=== PATIENT | female | born 1980 | race Two or more races ===

== ENCOUNTER 2019-09-14 12:00 | Inpatient (IN) | payer OTHER ==
[~2019-09-14] VITALS: Ht 165.1 cm; Wt 96.6 kg
[2019-10-04] MEDS ORDERED: PRENATAL TABLE1 EACH PO (01:26)
== END 2019-10-06 14:20 | disposition home or self-care (01) | DRG 807 ==
LOC: OB/GYN 10-03 12:00 → LDR 10-04 01:15 → SURG-SUITE 10-04 01:15
PROVIDERS: ADMIT Obstetrics & Gynecology; ATTEND Obstetrics & Gynecology
PROC: 10E0XZZ Delivery of Products of Conception, External Approach (ICD-10-PCS; principal; 2019-10-04)
PROC: 0KQM0ZZ Repair Perineum Muscle, Open Approach (ICD-10-PCS; 2019-10-04)
PROC: 3E033VJ Introduction of Other Hormone into Peripheral Vein, Percutaneous Approach (ICD-10-PCS; 2019-10-04)
PROC: 4A1HXCZ Monitoring of Products of Conception, Cardiac Rate, External Approach (ICD-10-PCS; 2019-10-04)
DX: O70.1 Second degree perineal laceration during delivery (principal); Z37.0 Single live birth; Z3A.39 39 weeks gestation of pregnancy

== ENCOUNTER 2019-09-28 08:19 | Outpatient (CLI) | payer OTHER | END 2019-09-28 09:23 | disposition home or self-care (01) | LOC: NST 08:19 | PROVIDERS: ATTEND Obstetrics & Gynecology | DX: Z34.83 Encounter for supervision of other normal pregnancy, third trimester (principal) ==

== ENCOUNTER 2019-10-01 09:35 | Outpatient (CLI) | payer OTHER | END 2019-10-01 13:15 | disposition home or self-care (01) | LOC: NST 09:35 | PROVIDERS: ATTEND Obstetrics & Gynecology | DX: Z34.83 Encounter for supervision of other normal pregnancy, third trimester (principal) ==